=== PATIENT | female | born 1955 | race Caucasian/White ===

== ENCOUNTER → 2018-03-09 | Outpatient (CLI) | payer BC | LOC: M RAD 08:03 | DX: J32.4 Chronic pansinusitis (principal) ==

== ENCOUNTER → 2018-08-10 | Outpatient (REF) | payer BC ==
[2018-08-10 18:37] LABS: APPEARANCE, URINE CLEAR (CLEAR); BACTERIA, URINE AUTO NEGATIVE (NEGATIVE); BILIRUBIN, URINE AUTO NEGATIVE (NEGATIVE); BLOOD, URINE BLOOD NEGATIVE (NEGATIVE); COLOR, URINE STRAW (YELLOW); GLUCOSE, URINE (UA) AUTO 2+ mg/dL (NEGATIVE); KETONE, URINE AUTO NEGATIVE (NEGATIVE); LEUKOCYTE ESTERASE, URINE AUTO NEGATIVE (NEGATIVE); MUCUS, URINE SMALL (NEGATIVE); NITRITE, URINE AUTO NEGATIVE (NEGATIVE); PROTEIN, URINE AUTO NEGATIVE (NEGATIVE); RBC, URINE AUTO 2 /HPF (0-3); SQUAMOUS EPITHELIAL CELL UR AU 0 /HPF (0-6); UROBILINOGEN, URINE AUTO 0.2 mg/dL (0.0-2.0); WBC, URINE AUTO 1 /HPF (0-3)
== END ==
LOC: M SMT 16:57
DX: N39.0 Urinary tract infection, site not specified (principal)
CPT/HCPCS: 81001

== ENCOUNTER → 2018-08-25 | Outpatient (REF) | payer BC ==
[2018-08-25 17:53] LABS: APPEARANCE, URINE HAZY (CLEAR); BACTERIA, URINE AUTO NEGATIVE (NEGATIVE); BILIRUBIN, URINE AUTO NEGATIVE (NEGATIVE); BLOOD, URINE BLOOD NEGATIVE (NEGATIVE); COLOR, URINE YELLOW (YELLOW); GLUCOSE, URINE (UA) AUTO 3+ mg/dL (NEGATIVE); KETONE, URINE AUTO NEGATIVE (NEGATIVE); LEUKOCYTE ESTERASE, URINE AUTO 2+ (NEGATIVE); NITRITE, URINE AUTO NEGATIVE (NEGATIVE); PROTEIN, URINE AUTO NEGATIVE (NEGATIVE); RBC, URINE AUTO 2 /HPF (0-3); SPECIFIC GRAVITY URINE AUTO 1.016 (1.002-1.035); SQUAMOUS EPITHELIAL CELL UR AU 0 /HPF (0-6); UROBILINOGEN, URINE AUTO 0.2 mg/dL (0.0-2.0); WBC, URINE AUTO 109 /HPF (0-3)
== END ==
LOC: M SMT 17:01
DX: N39.0 Urinary tract infection, site not specified (principal)
CPT/HCPCS: 81001

== ENCOUNTER 2018-11-01 07:22 | Day surgery (SDC) | payer BC ==
[~2018-11-01] VITALS: Ht 162.6 cm; Wt 76.7 kg
[~2018-11-01 07:22] MED LIST: BRIM1OPD OU; CRAN400C PO; FLON1SPR; GLIM2TAB PO; HYDR25TAB PO; IRON325T7 PO; JANU100T PO; LISI-542 PO; MECL1CHW2 PO; METF10004 PO; MIRT45TA59 PO; NEXI40CA PO; SIMV20TA2 PO; SING10TA32 PO; SYMB80INH INH; VITA500T88 PO; XALA0.007 OU
[2018-11-01] MEDS ORDERED: LR 1,000 ML IV ONE (09:30)
[2018-11-01] MEDS ORDERED: HumaLOG INSULIN (NovoLOG) PER UNIT SC ONE ×2 (09:30→13:30)
[2018-11-01] MEDS ORDERED: fentaNYL 250 MCG/5 ML INJECTION (J3010) As Ordered ONE (09:54)
[2018-11-01] MEDS ORDERED: MIDAZOLAM INJ 2 MG/2 ML VIAL (J2250) As Ordered ONE (09:54)
[2018-11-01] MEDS ORDERED: LIDOCAINE 2% INJ 100 MG/5 ML SDV (FOR ANES.) As Ordered ONE (09:54)
[2018-11-01] MEDS ORDERED: PROPOFOL 200 MG/20 ML VIAL As Ordered ONE (09:54)
[2018-11-01] MEDS ORDERED: dexameTHASONE 4 MG/ML 1ML VIAL (J1100) As Ordered ONE (10:02)
[2018-11-01] MEDS ORDERED: LIDOCAINE W/EPINEPHRINE 1% 20ML VIAL As Ordered ONE (10:09)
[2018-11-01] MEDS ORDERED: METHYLENE BLUE 0.5% (5MG/ML) 10 ML AMP (PROVAYBLUE)(Q9968 PER 1MG) As Ordered ONE (10:09)
[2018-11-01] MEDS ORDERED: EPINEPHrine 1MG/ML INJ 30ML MD-VIAL As Ordered ONE (10:09)
[2018-11-01] MEDS ORDERED: ROCURONIUM BROMIDE 50 MG/5 ML VIAL As Ordered ONE (11:39)
[2018-11-01] MEDS ORDERED: METOCLOPRAMIDE INJ 10MG/2ML VIAL (J2765) As Ordered ONE (11:40)
[2018-11-01] MEDS ORDERED: NEOSTIGMINE 10 MG/10 ML VIAL (J2710) As Ordered ONE (11:40)
[2018-11-01] MEDS ORDERED: GLYCOPYRROLATE INJ 0.2 MG/ML 2 ML VIAL As Ordered ONE (11:40)
[2018-11-01] MEDS ORDERED: ONDANSETRON 4MG/2ML VIAL (J2405) As Ordered ONE (11:42)
[2018-11-01] MEDS ORDERED: ESMOLOL INJ 100MG/10ML VIAL As Ordered ONE (12:07)
[2018-11-01] MEDS ORDERED: hydrALAZINE INJ 20 MG/ML VIAL As Ordered ONE (12:23)
[2018-11-01] MEDS ORDERED: LR 1,000 ML IV SCH ×2 (13:00→13:15)
[2018-11-01] MEDS ORDERED: fentaNYL 100 MCG/2 ML INJECTION (J3010) IV PRN (13:15)
[2018-11-01] MEDS ORDERED: PERCOCET 5MG/325MG TAB PO PRN (13:15)
[2018-11-01] MEDS ORDERED: HYDROMORPHONE HCL 0.5 MG/ 0.5 ML SYRINGE (J1170 PER 1) IV PRN (13:15)
[2018-11-01] MEDS ORDERED: traMADol 50 MG TAB PO PRN (13:15)
[2018-11-01] MEDS ORDERED: ONDANSETRON 4MG/2ML VIAL (J2405) IV PRN (14:45)
[2018-11-01 15:51] VITALS: BP 157/71
--- NOTE | 2018-11-01 21:12 | RO ---
DATE OF PROCEDURE: 11/01/2018 PREOPERATIVE DIAGNOSIS: Chronic rhinosinusitis with polyposis. POSTOPERATIVE DIAGNOSIS: Chronic rhinosinusitis with polyposis. OPERATIVE PROCEDURE: Bilateral antrostomy, bilateral polypectomy, bilateral ethmoidectomy, bilateral nasal frontal sinusotomy, bilateral sphenoidotomy. FINDINGS: Polypoid tissues within all of the sinuses. I was able to approach the left side of the nose well despite the nasal septal deviation so I elected not to do the septoplasty. SURGEON: Dr. Corey Gonsalez TIGER MACHINE OPERATOR: ANESTHESIA: General. PROCEDURE: Under general anesthesia with the patient intubated, the patient was prepped and draped in the usual manner. I used pledgets of adrenaline 1:1000 and infiltrated with lidocaine with epinephrine. I did use the navigation system during the procedure, and this was hooked up and calibrated prior to the procedure. I started first on the right side. I removed the polypoid portion of the middle turbinate anteriorly and then I opened up the osteomeatal complex area. I removed polypoid tissue from the opening of the natural sinus ostium and the maxillary sinus on the right side and then went into the ethmoid air cells and opened from posterior to anterior. I opened up the sphenoid sinus on that side and suctioned a large amount of fluid from the sphenoid sinus. I then opened the nasal frontal area after I removed portions of the middle turbinate superiorly. Once this was done, attention directed towards the opposite side and the same procedure was performed. Less than 50 mL estimated blood loss. Patient tolerated the procedure well and was extubated and transferred to the recovery room in excellent condition. I did put Propel implants in the osteomeatal complex area prior to the termination of the procedure.
== END 2018-11-01 16:03 | disposition home or self-care (01) ==
LOC: M SDC 07:22
PROVIDERS: ATTEND Otolaryngology
DX: J32.8 Other chronic sinusitis (principal); J33.9 Nasal polyp, unspecified; I10 Essential (primary) hypertension; E11.9 Type 2 diabetes mellitus without complications; E78.00 Pure hypercholesterolemia, unspecified; R01.1 Cardiac murmur, unspecified; J45.909 Unspecified asthma, uncomplicated; M15.0 Primary generalized (osteo)arthritis; K21.9 Gastro-esophageal reflux disease without esophagitis; R06.02 Shortness of breath; M54.2 Cervicalgia; F32.9 Major depressive disorder, single episode, unspecified; J44.9 Chronic obstructive pulmonary disease, unspecified; G47.9 Sleep disorder, unspecified; T88.59XD Other complications of anesthesia, subsequent encounter; Z88.1 Allergy status to other antibiotic agents; Z88.5 Allergy status to narcotic agent; Z88.6 Allergy status to analgesic agent; Z88.8 Allergy status to other drugs, medicaments and biological substances; Z91.018 Allergy to other foods; Z91.048 Other nonmedicinal substance allergy status; Z79.899 Other long term (current) drug therapy; Z79.84 Long term (current) use of oral hypoglycemic drugs; Z78.0 Asymptomatic menopausal state; Z98.41 Cataract extraction status, right eye; Z98.42 Cataract extraction status, left eye; Z96.1 Presence of intraocular lens
CPT/HCPCS: 31253; 31259; 88305; C2625; J1100; J2250; J2405; J2710; J2765; J3010; Q9968

== ENCOUNTER → 2023-09-17 | Outpatient (REF) | payer MEDICARE, BC ==
[~2023-09-17] MED LIST changes: +FERR325T82 PO; -GLIM2TAB PO; +GLIM2TAB4 PO; +HYDR-3490 PO; -HYDR25TAB PO; -IRON325T7 PO; -LISI-542 PO; +LISI5TAB11 PO; +MECL1CHW PO; -MECL1CHW2 PO; +MIRT1TAB17 PO; -MIRT45TA59 PO; +MONT-5 PO; -SIMV20TA2 PO; +SIMV20TA22 PO; -SING10TA32 PO
== END ==
LOC: M LAB REF 13:01
PROVIDERS: ATTEND Internal Medicine Endocrinology, Diabetes & Metabolism
DX: E04.2 Nontoxic multinodular goiter (principal)